=== PATIENT | male | born 1935 | race Caucasian/White ===

== ENCOUNTER 2017-06-20 09:54 | Observation (INO) | payer MEDICARE ==
[2017-06-20] MEDS ORDERED: NS 0.9% 1000 ML* 1,000 ML IV ONE (09:58)
[2017-06-20 10:21] LABS: Hematocrit 47 % (42-52); Hemoglobin 15.8 g/dl (14.0-18.0); Mean Corpuscular HGB Conc 34 g/dl (31-36); Mean Corpuscular Hemoglobin 32 pg (27-31); Mean Corpuscular Volume 95 fL (80-94); Mean Platelet Volume 9 um3 (7.4-10.4); Red Blood Count 4.94 10^6/ul (4.0-5.4); Red Cell Distribution Width 13 % (10.5-15); White Blood Count 9.1 10^3/ul (3.5-10.8)
--- NOTE | 2017-06-20 10:38 | RAD ---
INDICATION: Right jaw pain COMPARISON: None TECHNIQUE: Noncontrast axial source images were acquired from the skull base to the vertex. FINDINGS: Ventricles/sulci: There is cortical atrophy with compensatory dilatation of the CSF spaces. Brain parenchyma: There is mild periventricular and subcortical white matter change compatible with chronic ischemia. Intracranial hemorrhage:None. Extra-axial spaces: There are no abnormal extra axial fluid collections or evidence of extra-axial mass. Calvarium: There is no calvarial fracture or other calvarial abnormality. Scalp: There is no evidence of scalp or extracalvarial soft tissue abnormality. Paranasal sinuses/mastoid: There are findings of mild chronic sinusitis. Other: None. IMPRESSION: No acute intracranial findings
[2017-06-20 10:45] LABS: Troponin I 0.01 ng/mL (<0.04)
[2017-06-20 10:53] LABS: Albumin 3.6 g/dL (3.2-5.2); BUN/Creatinine Ratio 18.3 (8-20); Calcium 8.9 mg/dL (8.6-10.3); EGFR African American 67.5 (>60); EGFR Non-African American 52.5 (>60); Globulin 3.1 g/dL (2-4); HDL Cholesterol 36.3 mg/dL; Potassium 4.3 mmol/L (3.5-5.0); Total Bilirubin 0.6 mg/dL (0.2-1.0); Total Protein 6.7 g/dL (6.4-8.9)
--- NOTE | 2017-06-20 10:58 | RAD ---
INDICATION: Code smith COMPARISON: None TECHNIQUE: An AP seated portable view obtained at 1033 hours is submitted. FINDINGS: Bones/Soft Tissues: There are no acute bony findings. Cardiomediastinal: The cardiomediastinal silhouette is normal. Lungs: There are no infiltrates. Pleura: There are no pleural effusions. Other: None IMPRESSION: NO ACTIVE DISEASE.
[2017-06-20 12:57] LABS: Urine Bacteria Absent (Absent); Urine Bilirubin Negative (Negative); Urine Glucose Negative (Negative); Urine Nitrite Negative (Negative)
[2017-06-20] MEDS ORDERED: Aspirin Low Dose CHEW TAB* 81 MG PO ONE (13:19)
[2017-06-20] MEDS ORDERED: Acetaminophen TAB* 325 MG PO PRN (15:09)
[2017-06-20] MEDS ORDERED: Iodixanol* (CONTRAST) 320 MG/ML 100 ML SDV IV ONE (15:18)
--- NOTE | 2017-06-20 16:17 | RAD ---
Indication: RIGHT side jaw numbness and speech changes. Onset 8:45 AM; symptoms improving. Comparison: CT brain of the same date and May 03, 2012 MRI. Technique: [place] 1.5 Megan [id number] with GEM suite. MRI brain without contrast. Report: There is restricted diffusion flanking the RIGHT precentral sulcus of the RIGHT frontal lobe in the RIGHT MCA distribution consistent with acute or subacute ischemia. There is additional restricted diffusion at the vertex of the LEFT frontal lobe consistent with acute or subacute ischemia in the LEFT KATE or MCA distribution. Susceptibility series is negative for stigmata of hemosiderin deposition to indicate previous hemorrhage. Negative for sulcal effacement. No intra or extra-axial fluid collection evident. Small chronic lacunar infarct at the RIGHT cerebellar hemisphere. T2 hyperintensities in the periventricular and subcortical white matter of the cerebral hemispheres while not entirely specific are most suggestive of chronic small vessel ischemic disease. Preserved major intracranial flow-voids. Unremarkable orbital contents. No suspicious calvarial or skull base lesion evident. Mucous retention cyst or polyp at the RIGHT maxillary sinus. Negative for paranasal sinus fluid levels or mastoid effusions. IMPRESSION: 1. Acute or subacute ischemia at the RIGHT and LEFT frontal lobes without appreciable mass effect. 2. Stigmata of chronic small vessel ischemic disease. 3. Moderate atrophy.
--- NOTE | 2017-06-20 16:34 | RAD ---
INDICATION: RIGHT jaw region numbness beginning at 8:45 AM with improvement. Foci of acute or subacute ischemia at the RIGHT and LEFT frontal lobes on MRI. COMPARISON: MRI of the same date. May 03, 2012 carotid ultrasound. TECHNIQUE: Multidetector CT images were obtained from the aortic arch to the vertex of the head with 80 mL Visipaque 320 IV contrast. Arterial phase of enhancement. Multiplanar reformation including maximum intensity projection. 3-D arterial volume rendering. Stenosis estimations based on denominator of distal arterial diameter. NECK ANGIOGRAM REPORT: Normal configuration of the branch vessels at the aortic arch. Negative for ostial stenosis. Mild calcific and noncalcific plaque at the proximal RIGHT subclavian artery without significant stenosis resulting. Mild calcific and noncalcific plaque at the RIGHT carotid bulb and proximal internal carotid artery without stenosis based on NASCET criteria. Mild calcific plaque at the LEFT carotid bulb and proximal internal carotid artery without significant stenosis based on NASCET criteria. LEFT dominant vertebral artery with both vertebral arteries patent and contributing to the basilar artery. The LEFT vertebral artery is tortuous in the proximal segment. No evidence for carotid or vertebral artery dissection. Diffuse cervical degenerative spondylosis and facet joint osteoarthritis with multilevel foraminal stenosis resulting. No fracture or suspicious focal osseous lesion evident. NECK ANGIOGRAM IMPRESSION: Mild atherosclerotic plaque at the carotid bifurcations without significant resulting stenosis. HEAD ANGIOGRAM REPORT: Mild atherosclerotic plaque at the intracranial internal carotid arteries without hemodynamic significant stenosis resulting. Patent M1 and M2 segments of the middle cerebral arteries. Patent A1 and A2 segments of the anterior cerebral arteries. No anterior communicating artery visualized. Unremarkable basilar artery and cerebellar artery origins. Patent RIGHT posterior cerebral artery is supplied primarily by the anterior circulation with normal variant hypoplastic RIGHT P1 segment. LEFT posterior cerebral artery is patent and supplied primarily by the posterior circulation with normal variant hypoplastic LEFT posterior communicating artery. The LEFT supraclinoid internal carotid artery is prominent measuring up to 4 mm diameter compared with 3 mm on the LEFT consistent with a fusiform aneurysm which is grossly unchanged compared with an MRI from May 03, 2012. No ogden aneurysm of the central intracranial arterial vasculature evident. No intracranial aneurysm or vascular malformation evident. Patent dominant dural venous sinuses. HEAD ANGIOGRAM IMPRESSION: 1. Negative for large vessel central intracranial arterial occlusion or stenosis. 2. 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 CPT II: CPT II Codes: 3100F
[2017-06-20] MEDS: Cyanocobalamin TAB* 500 MCG PO SCH (18:42)
--- NOTE | 2017-06-20 18:45 | ED ---
Natalie Bowie SooYoung, scribed for Rony Strong MD on 06/20/17 at 0958 . Neurological HPI - HPI Summary HPI Summary: An 82 y/o M with PMHx TIA presents to ED BIBA with numbness on R side of face. Associated sx: slight facial droop, pt notes this is chronic. Pt states feeling better on arrival in ED. - History of Current Complaint Stated Complaint: RIGHT SIDED FACIAL NUMBNESS Time Seen by Provider: 06/20/17 09:58 Hx Obtained From: Patient Onset/Duration: Still Present - Allergy/Home Medications Allergies/Adverse Reactions: Allergies Allergy/AdvReac Type Severity Reaction Status Date / Time No Known Allergies Allergy Verified 06/20/17 10:03 Home Medications: Home Medications Aspirin Low Dose CHEW TAB* [Aspirin Low Dose TAB*] 81 mg PO DAILY 06/20/17 [ History Confirmed 06/20/17] Atorvastatin* [Lipitor*] 10 mg PO DAILY 06/20/17 [History Confirmed 06/20/17] Cyanocobalamin TAB* [Vitamin B12 TAB*] 1,000 mcg PO DAILY 06/20/17 [History Confirmed 06/20/17] PMH/Surg Hx/FS Hx/Imm Hx Previously Healthy: No Musculoskeletal History: Denies: Hx Rheumatoid Arthritis, Hx Osteoporosis Neurological History: Reports: Hx Transient Ischemic Attacks (TIA) - Family History Known Family History: Positive: Other - mother: VINITAA at 68 - Social History Occupation: Retired Lives: Alone Alcohol Use: None Hx Substance Use: No Smoking Status (MU): Unknown if Ever Smoked Review of Systems Negative: Fever Neurological: Other - pos: slight R facial droop, chronic Positive: Numbness - R side All Other Systems Reviewed And Are Negative: Yes Physical Exam - Summary Physical Exam Summary: VITAL SIGNS: Reviewed. GENERAL: Patient is a well-developed and nourished MALE who is lying comfortable in the stretcher. Patient is not in any acute respiratory distress. HEAD AND FACE: No signs of trauma. No ecchymosis, hematomas or skull depressions. No sinus tenderness. EYES: PERRLA, EOMI x 2, No injected conjunctiva, no nystagmus. No photophobia. EARS: Hearing grossly intact. Ear canals and tympanic membranes are within normal limits. MOUTH: Oropharynx within normal limits. NECK: Supple, trachea is midline, no adenopathy, no JVD, no carotid bruit, no c- spine tenderness, neck with full ROM. No meningeal signs, no Kernig's or Brudzinskis signs. CHEST: Symmetric, no tenderness at palpation LUNGS: Clear to auscultation bilaterally. No wheezing or crackles. CVS: Regular rate and rhythm, S1 and S2 present, no murmurs or gallops appreciated. ABDOMEN: Soft, non-tender. No signs of distention. No rebound, no guarding, and no masses palpated. Bowel sounds are normal. EXTREMITIES: FROM in all major joints, no edema, no cyanosis or clubbing. NEURO: Alert and oriented x 3. No acute neurological deficits. Speech is normal and follows commands. SKIN: Dry and warm GCS: 15 Triage Information Reviewed: Yes Vital Signs On Initial Exam: Initial Vitals Temp Pulse Resp BP Pulse Ox 98.1 F 77 18 160/92 92 06/20/17 09:56 06/20/17 09:56 06/20/17 09:56 06/20/17 09:56 06/20/17 09:56 Vital Signs Reviewed: Yes Diagnostics - Vital Signs Vital Signs Temp Pulse Resp BP Pulse Ox 06/20/17 15:00 70 16 133/83 97 06/20/17 14:30 81 17 137/81 98 06/20/17 14:24 141/118 06/20/17 14:13 119 24 96 06/20/17 14:00 58 20 94 06/20/17 13:32 65 21 95 06/20/17 12:32 90 16 139/76 93 06/20/17 11:31 95 06/20/17 10:55 98.5 F 99 16 176/99 94 06/20/17 09:58 87 16 94 06/20/17 09:56 98.1 F 77 18 160/92 92 - Laboratory Lab Results: Lab Results 06/20/17 06/20/17 06/20/17 Range/Units 10:05 10:05 10:05 WBC 9.1 (3.5-10.8) 10^3/ul RBC 4.94 (4.0-5.4) 10^6/ul Hgb 15.8 (14.0-18.0) g/dl Hct 47 (42-52) % MCV 95 H (80-94) fL MCH 32 H (27-31) pg MCHC 34 (31-36) g/dl RDW 13 (10.5-15) % Plt Count 128 L (150-450) 10^3/ul MPV 9 (7.4-10.4) um3 Neut % (Auto) 80.5 (38-83) % Lymph % (Auto) 12.3 L (25-47) % [place] % (Auto) 5.2 (1-9) % Eos % (Auto) 0.6 (0-6) % Baso % (Auto) 1.4 (0-2) % Absolute Neuts (auto) 7.3 (1.5-7.7) 10^3/ul Absolute Lymphs (auto) 1.1 (1.0-4.8) 10^3/ul Absolute Monos (auto) 0.5 (0-0.8) 10^3/ul Absolute Eos (auto) 0.1 (0-0.6) 10^3/ul Absolute Basos (auto) 0.1 (0-0.2) 10^3/ul Absolute Nucleated RBC 0 10^3/ul Nucleated RBC % 0 INR (Anticoag Therapy) 0.90 (0.89-1.11) APTT 31.7 (26.0-36.3) seconds Sodium 140 (133-145) mmol/L Potassium 4.3 (3.5-5.0) mmol/L Chloride 109 (101-111) mmol/L Carbon Dioxide 25 (22-32) mmol/L Anion Gap 6 (2-11) mmol/L BUN 24 (6-24) mg/dL Creatinine 1.31 H (0.67-1.17) mg/dL Est GFR ( Amer) 67.5 (>60) Est GFR (Non-Af Amer) 52.5 (>60) BUN/Creatinine Ratio 18.3 (8-20) Glucose 156 H (70-100) mg/dL Lactic Acid (0.5-2.0) mmol/L Calcium 8.9 (8.6-10.3) mg/dL Total Bilirubin 0.60 (0.2-1.0) mg/dL AST 15 (13-39) U/L ALT 13 (7-52) U/L Alkaline Phosphatase 57 (34-104) U/L Troponin I 0.01 (<0.04) ng/mL Total Protein 6.7 (6.4-8.9) g/dL Albumin 3.6 (3.2-5.2) g/dL Globulin 3.1 (2-4) g/dL Albumin/Globulin Ratio 1.2 (1-3) Triglycerides 77 mg/dL Cholesterol 118 mg/dL LDL Cholesterol 66 mg/dL HDL Cholesterol 36.3 mg/dL Urine Color Urine Appearance Urine pH (5-9) Ur Specific [place] (1.010-1.030) Urine Protein (Negative) Urine Ketones (Negative) Urine Blood (Negative) Urine Nitrate (Negative) Urine Bilirubin (Negative) Urine Urobilinogen (Negative) Ur Leukocyte Esterase (Negative) Urine WBC (Auto) (Absent) Urine RBC (Auto) (Absent) Urine Bacteria (Absent) Hyaline Casts (Absent) Urine Glucose (Negative) 06/20/17 06/20/17 Range/Units 10:05 11:20 WBC (3.5-10.8) 10^3/ul RBC (4.0-5.4) 10^6/ul Hgb (14.0-18.0) g/dl Hct (42-52) % MCV (80-94) fL MCH (27-31) pg MCHC (31-36) g/dl RDW (10.5-15) % Plt Count (150-450) 10^3/ul MPV (7.4-10.4) um3 Neut % (Auto) (38-83) % Lymph % (Auto) (25-47) % [place] % (Auto) (1-9) % Eos % (Auto) (0-6) % Baso % (Auto) (0-2) % Absolute Neuts (auto) (1.5-7.7) 10^3/ul Absolute Lymphs (auto) (1.0-4.8) 10^3/ul Absolute Monos (auto) (0-0.8) 10^3/ul Absolute Eos (auto) (0-0.6) 10^3/ul Absolute Basos (auto) (0-0.2) 10^3/ul Absolute Nucleated RBC 10^3/ul Nucleated RBC % INR (Anticoag Therapy) (0.89-1.11) APTT (26.0-36.3) seconds Sodium (133-145) mmol/L Potassium (3.5-5.0) mmol/L Chloride (101-111) mmol/L Carbon Dioxide (22-32) mmol/L Anion Gap (2-11) mmol/L BUN (6-24) mg/dL Creatinine (0.67-1.17) mg/dL Est GFR ( Amer) (>60) Est GFR (Non-Af Amer) (>60) BUN/Creatinine Ratio (8-20) Glucose (70-100) mg/dL Lactic Acid 2.2 H* (0.5-2.0) mmol/L Calcium (8.6-10.3) mg/dL Total Bilirubin (0.2-1.0) mg/dL AST (13-39) U/L ALT (7-52) U/L Alkaline Phosphatase (34-104) U/L Troponin I (<0.04) ng/mL Total Protein (6.4-8.9) g/dL Albumin (3.2-5.2) g/dL Globulin (2-4) g/dL Albumin/Globulin Ratio (1-3) Triglycerides mg/dL Cholesterol mg/dL LDL Cholesterol mg/dL HDL Cholesterol mg/dL Urine Color Yellow Urine Appearance Clear Urine pH 7.0 (5-9) Ur Specific [place] 1.016 (1.010-1.030) Urine Protein 2+(100 mg/dl) H (Negative) Urine Ketones Negative (Negative) Urine Blood Negative (Negative) Urine Nitrate Negative (Negative) Urine Bilirubin Negative (Negative) Urine Urobilinogen Negative (Negative) Ur Leukocyte Esterase Negative (Negative) Urine WBC (Auto) Trace(0-5/hpf) (Absent) Urine RBC (Auto) Trace(0-2/hpf) (Absent) Urine Bacteria Absent (Absent) Hyaline Casts Present H (Absent) Urine Glucose Negative (Negative) Result Diagrams: 06/20/17 10:05 06/20/17 10:05 Lab Statement: Any lab studies that have been ordered have been reviewed, and results considered in the medical decision making process. - Radiology CXR Xray Interpretation: No Acute Changes - IMPRESSION: No active dx. ED physician has reviewed this radiology report and agrees Radiology Interpretation Completed By: Radiologist - CT BRAIN CT CT Interpretation: No Acute Changes - IMPRESSION: No acute intracranial findings. ED physician has reviewed this radiology report and agrees CT Interpretation Completed By: Radiologist - EKG 1016 Cardiac Rate: NL - 93bpm EKG Rhythm: Sinus Rhythm ST Segment: Normal Ectopy: None NIH Scale - NIH Scale Level of Consciousness: Alert/Keenly Responsive Ask Patient the Month and His/Her Age: Both Correct Ask Pt to Open/Close Eyes and Leather Heel Breaster/Release Non-Paretic Hand: Both Correctly Best Gaze (Only Horizontal Eye Movement): Normal Visual Field Testing: No Visual Loss Facial Paresis-Pt to Smile & Close Eyes or Grimace Symmetry: Normal/Symmetrical Motor Function - Right Arm: No Drift-Holds 10 Seconds Motor Function - Left Arm: No Drift-Holds 10 Seconds Motor Function - Right Leg: No Drift-Holds 10 Seconds Motor Function - Left Leg: No Drift-Holds 10 Seconds Limb Ataxia-Must be out of Proportion to Weakness Present: Absent Sensory (Use Pinprick to Test Arms/Legs/Trunk/Face): Normal Best Language (Describe Picture, Name Items): No Aphasia Dysarthria (Read Several Words): Normal Extinction and Inattention: No Abnormality Total Score: 0 Re-Evaluation - Re-Evaluation 1 Re-Evaluation Time: 15:13 Change: Unchanged Comment: Discussing results and consult with family members. Course/Dx - Course Course Of Treatment: An 82 y/o M with PMHx TIA presents to ED BIBA with numbness on R side of face. Associated sx: slight facial droop, pt notes this is chronic. Pt states feeling better on arrival in ED. Bloodwork results are without any significant abnormalities except creatinine 1.31, glucose 156. Head CT is negative for acute intracranial pathology. CXR is neg. All sx are secondary to TIA. All sx are resolved. Discussed case with Dr. Wall, neuro, who recommends admission for TIA workup. Discussed case with Dr. Jaramillo, hospitalist, who accepts pt for admission. - Differential Dx Differential Diagnoses Neuro: Positive: Cerebrovascular Accident, Seizure Disorder, Transient Ischemic Attack - Diagnoses Provider Diagnoses: TIA (transient ischemic attack) - Physician Notifications Discussed Care Of Patient With: Ev Wall - neuro Time Discussed With Above Provider: 13:17 Instructed by Provider To: Admit As Observation - recommends admit for observation Discharge - Discharge Plan Condition: Stable Disposition: ADMITTED TO [facility] Consult Consult: 1345: Consult with Dr. Jaramillo, hospitalist Will admit pt. The documentation as recorded by the Natalie sanders SooYoung accurately reflects the service I personally performed and the decisions made by me, Rony Strong MD.
[2017-06-20] MEDS: Heparin VIAL(*) 5000 UNITS/ML VIAL (FIVE THOUSAND) SUBCUT SCH (20:46)
--- NOTE | 2017-06-20 20:47 | HP ---
CC: Lloyd Hawley NP; Dr. Wall * HISTORY AND PHYSICAL: DATE OF ADMISSION: 06/20/17 PRIMARY CARE PROVIDER: Lloyd Hawley NP CHIEF COMPLAINT: Problems with speech and right facial numbness. HISTORY OF PRESENT ILLNESS: Mr. Torres is an 82-year-old male with a history of CVA in 2011, which manifested as left leg numbness and resolved with no residual deficit, who presented today complaining of right-sided facial numbness. The patient stated that today in the morning when he was trying to get up from a chair, he noted that right side of his face, specifically the lower jaw area was numb. He also stated at that point he felt generalized weakness and fatigue. He also noted that his speech was different than usual. He stated that the numbness resolved within minutes, but the speech problems continued to be noticeable. In fact, when I was talking with the patient in the emergency room with the presence of both his sister and [id number], they both noted that the patient's speech is slightly slurred and different from his baseline. The patient is going to be admitted with the diagnosis of CVA to the hospital. PAST MEDICAL HISTORY: 1. History of bilateral cataracts extraction. 2. History of vitamin B12 deficiency. 3. History of hyperlipidemia. 4. History of ischemic CVA in 2012. MEDICATIONS: Include: 1. Vitamin B12, 1000 mcg daily. 2. Atorvastatin 10 mg daily. 3. Aspirin 81 mg daily. ALLERGIES: No known drug allergies. FAMILY HISTORY: Positive for mother who of CVA at the age of 77. Father with history of heart disease who suddenly in his sleep at the age of 77 also. SOCIAL HISTORY: The patient denies any tobacco or drug use. He drinks an occasional beer. 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 His surrogate decision making person is his brother, Bravo Torres. The patient is DNR. REVIEW OF SYSTEMS: Please see history of present illness. All the remaining 14 systems were reviewed with the patient and were otherwise negative. PHYSICAL EXAMINATION GENERAL: The patient is a very pleasant 82-year-old male who is in no acute distress, alert, awake, and oriented x3. VITAL SIGNS: Blood pressure 133/83, heart rate of 71 and regular, respiratory rate 16, oxygen saturation 97% on room air, temperature 98.6. HEENT: Head atraumatic and normocephalic. Eyes: Pupils are equal, round, and reactive to light and accommodation. Oropharynx clear. Mucosa moist. NECK: Supple. No JVD, no bruits bilaterally. RESPIRATORY: Clear to auscultation bilaterally CARDIOVASCULAR: Regular rate and rhythm. No murmur. ABDOMEN: Soft and nontender. Bowel sounds are present in all 4 quadrants. EXTREMITIES: There is no edema, pulses are +2 bilaterally. No clubbing or cyanosis. NEURO EVALUATION: The patient appears to have flattening of left-sided nasolabial fold, but it is very difficult to establish that during my evaluation due to abundant facial hair. He has no further numbness detected on his face. His speech is very mildly dysarthric. I have no difficulty understanding the patient during my evaluation. Otherwise, motor strength is 5/ 5 bilaterally. [id number] is slightly dysmetric on the left by approximately 1 cm. Gait is steady. There is no sensation deficit. Motor strength in lower extremities is 5/5 bilaterally. PSYCHIATRIC EVALUATION: The patient is oriented x3 with no evidence of anxiety or depression. LABORATORY DATA: Show white blood cell count of 9.1, hemoglobin of 15.8, hematocrit of 47, platelets of 128,000. Sodium is 140, potassium of 4.3, chloride 109, carbon dioxide 25, BUN 24, creatinine 1.3. The patient's creatinine at his baseline is 1.3 dating back to 2013. The patient's lactic acid was slightly elevated at 2.2. Liver function tests were unremarkable, troponin of 0.01. LDL cholesterol of 66. Urinalysis unremarkable apart from +2 protein. The patient's brain MRI, impression: "Acute or subacute ischemia in the right and left frontal lobes without appreciable . Stigmata of chronic small vessel ischemic change. Moderate atrophy." CT angiogram of the head and neck is pending at the time of dictation. The patient's EKG showed sinus rhythm with heart rate of 92 beats per minute with PAC's and left anterior hemiblock. There was no old EKG available for comparison. Portable chest x-ray, impression: "No active disease." ASSESSMENT/PLAN: Acute, what appears to be multifocal cerebrovascular accident in a patient with mild residual dysarthria. At this point, the patient is going to be continued on aspirin. I will ask Dr. Wall to see the patient in consultation. switch to Plavix at this point. For the time being, he is going to be admitted to the hospital on telemetry monitored floor. Transthoracic echocardiogram is going to be obtained with bubble study. CT angiogram of the head and neck is being obtained right now. The patient is going to be placed on neuro checks every 2 hours. His statin is going to be continued at the same dose. Bedside nursing swallow evaluation is going to be obtained as well as speech therapy consult. In regards to history of dyslipidemia, the patient's LDL is at the goal at 66 and his Lipitor is going to be continued. For history of vitamin B12 deficiency , we will continue his oral vitamin B12 supplement. For DVT prophylaxis, the patient is going to be placed on heparin subcutaneously. The patient's code status is do not resuscitate and that was updated with the patient. His surrogate is his brother Bravo. TIME SPENT: Approximately 65 minutes were spent on the admission of this patient, more than half that time was spent [id number] with the patient during the interview and physical exam. [id number]/[facility] #: [id number] [place]
[2017-06-21] MEDS: Heparin VIAL(*) 5000 UNITS/ML VIAL (FIVE THOUSAND) SUBCUT SCH ×2 (05:51→13:38)
[2017-06-21 06:59] LABS: Hematocrit 43 % (42-52); Hemoglobin 14.5 g/dl (14.0-18.0); Mean Corpuscular HGB Conc 34 g/dl (31-36); Mean Corpuscular Hemoglobin 32 pg (27-31); Mean Corpuscular Volume 94 fL (80-94); Mean Platelet Volume 9 um3 (7.4-10.4); Red Blood Count 4.58 10^6/ul (4.0-5.4); Red Cell Distribution Width 13 % (10.5-15); White Blood Count 6.4 10^3/ul (3.5-10.8)
[2017-06-21 07:15] LABS: Calcium 8.6 mg/dL (8.6-10.3); EGFR African American 69.4 (>60); EGFR Non-African American 53.9 (>60); Potassium 4.3 mmol/L (3.5-5.0)
[2017-06-21] MEDS: Cyanocobalamin TAB* 500 MCG PO SCH (08:27)
[2017-06-21] MEDS ORDERED: Aspirin Low Dose CHEW TAB* 81 MG PO SCH (09:00)
[2017-06-21] MEDS ORDERED: Atorvastatin* 10 MG TAB PO SCH ×2 (09:00→21:00)
--- NOTE | 2017-06-21 11:11 | ECHO ---
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 Left Ventricle: The left ventricular chamber size is mildly dilated. Mild concentric left ventricular hypertrophy is observed. There is a focal wall motion abnormality present. The estimated ejection fraction is 45-50%. Closer to 50% with focal relative inferior-posterior wall hypokinesis. Abnormal left ventricular diastolic filling is observed, consistent with impaired relaxation. Left Atrium: The left atrium is mildly dilated. Right Ventricle: The right ventricular chamber size and systolic function are within normal limits. Right Atrium: The right atrium is mildly dilated. The bubble study is negative. A patent foramen ovale is not demonstrated with color Doppler and agitated contrast. Aortic Valve: The aortic valve is trileaflet. There is a trace of aortic regurgitation. There is no evidence of aortic stenosis. Mitral Valve: The mitral valve leaflets are mildly thickened. There is a trace of mitral regurgitation. There is no evidence of mitral stenosis. Tricuspid Valve: The tricuspid valve leaflets are normal. There is trace tricuspid regurgitation. There is evidence of mild pulmonary hypertension. Pulmonic Valve: There is no evidence of pulmonic valve thickening. There is no evidence of pulmonic regurgitation. Pericardium: There is no significant pericardial effusion. Aorta: There is mild dilatation of the ascending aorta. The aortic arch is not well visualized. There is mild dilatation of the aortic root. Pulmonary Artery: The main pulmonary artery is not well visualized. Venous: The inferior vena cava is not visualized. Contrast: Intravenous agitated saline contrast was used to assess intracardiac shunting. Summary: There was not any prior study for comparison. Conclusions The left ventricular chamber size is mildly dilated. Mild concentric left ventricular hypertrophy is observed. The estimated ejection fraction is 45-50%. Closer to 50% with focal relative inferior-posterior wall hypokinesis. The left atrium is mildly dilated. The right atrium is mildly dilated. The bubble study is negative. A patent foramen ovale is not demonstrated with color Doppler and agitated contrast. There is a trace of aortic regurgitation. There is a trace of mitral regurgitation. There is trace tricuspid regurgitation. There is mild dilatation of the ascending aorta. Measurements Name Value Normal Range RVIDd (AP) 2D 3.1 cm (0.9 - 2.6) RVDdMajor (2D) 3 cm (2.2 - 4.4) RAd ISD 4CH 5.7 cm (3.4 - 4.9) RA (A4C)W 3.8 cm (2.9 - 4.6) IVSd (2D) 1.1 cm (0.6 - 1) LVPWd (2D) 1.1 cm (0.6 - 1) LVIDd (2D) 6.2 cm (3.6 - 5.4) LVIDs (2D) 4.6 cm - LV FS (2D) 25 % (25 - 45) Aortic Annulus 2.2 cm (1.4 - 2.6) Ao root diameter (2D) 3.7 cm (2.1 - 3.5) Ascending Ao 3.6 cm (2.1 - 3.4) LA dimension (AP) 2D 4.6 cm (2.3 - 3.8) LAd ISD 4CH 5.9 cm (2.9 - 5.3) LA ISD 4CH W 4.2 cm (2.5 - 4.5) Name Value Normal Range LA ESV SP 4CH (A/L) 57.73 ml - LA ESV SP 2CH (A/L) 65.54 ml - LA ESV BP (A/L) 62.41 ml - LA ESV BP (A/L) index 31.5 ml/m2 - LA ESV SP 4CH (MOD) 54.95 ml - LA ESV SP 2CH (MOD) 56.77 ml - Name Value Normal Range MV E-wave Vmax 0.4 m/sec - MV deceleration time 392 msec - MV A-wave Vmax 0.7 m/sec - MV E:A ratio 0.6 ratio - P. vein S-wave Vmax 0.6 m/sec - P. vein D-wave Vmax 0.4 m/sec - P. vein S:D Vmax ratio 1.8 ratio - P. vein A-wave duration 104 msec - LV septal e' Vmax 0.06 m/sec - LV lateral e' Vmax 0.03 m/sec - LV E:e' septal ratio 7 ratio - LV E:e' lateral ratio 13 ratio - Name Value Normal Range AV Vmax 1.4 m/sec - AV VTI 32.6 cm - AV peak gradient 8 mmHg - AV mean gradient 4.5 mmHg - LVOT Vmax 0.8 m/sec - LVOT VTI 19 cm - LVOT peak gradient 2.5 mmHg - LVOT mean gradient 1.3 mmHg - MASON Vmax 0.6 m/sec - Name Value Normal Range TR Vmax 2.7 m/sec - TR peak gradient 29 mmHg - RAP 8 mmHg - RVSP 37 mmHg - Name Value Normal Range PV Vmax 0.6 m/sec - PV peak gradient 1.4 mmHg -
[2017-06-21 15:52] VITALS: BP 128/72
--- NOTE | 2017-06-21 17:50 | CONS ---
NEUROLOGY CONSULTATION: DATE OF CONSULT: 06/21/17 LOCATION: The patient is an inpatient. ORDERING PHYSICIAN: Dr. Li Jaramillo. REASON FOR CONSULT: Stroke. HISTORY OF PRESENT ILLNESS: Mikael Torres is an 82-year-old man with a history of stroke in 2011 resulting in left leg weakness/numbness, who presented to the emergency department yesterday. The emergency room note and Dr. Jaramillo's note indicate that he was complaining of right-sided facial numbness , but today he tells me that he was having difficulty eating his breakfast and when he went to drink a coffee, it was coming out of his mouth and he felt generally weak, so he was worried that he had had a stroke and he called his brother who then called the ambulance for him. He is today denying to me that he had any numbness in his face on either side. In any case, his speech was also apparently different than his typical. Yesterday, when Dr. Jaramillo was evaluating the patient in the presence of his sister and [id number], they both indicated to her that his speech was slurred and different from his baseline, but it appears that it may have returned to his baseline today, though his baseline consists of indistinct speech. Today, the patient reports that his chewing and drinking abilities have improved significantly. 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 He denies any weakness of his extremities today, swallowing difficulties, or vision changes. He takes a baby aspirin daily and also a low dose of atorvastatin. PAST MEDICAL HISTORY: 1. B12 deficiency. 2. Hyperlipidemia. 3. Ischemic stroke in 2011. 4. Bilateral cataract removal. HOME MEDICATIONS: 1. Aspirin 81 mg daily. 2. Atorvastatin 10 mg daily. 3. Vitamin B12 1000 mcg daily. ALLERGIES: No known drug allergies. FAMILY HISTORY: Mother of a stroke at the age of 77. He indicates that his father passed from hardening of the arteries. SOCIAL HISTORY: He denies any tobacco or drug use. He drinks beer rarely. 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 He is not , has no children. REVIEW OF SYSTEMS: He denies any recent fever or chills, appetite changes, weight loss, joint pain or erythema or new skin rashes. He is noted to have a cough on exam today, but indicates that that is a nervous cough. He denies any chest pains or palpitations, heart fluttering. He has no GI symptoms. Otherwise, as per the HPI. PHYSICAL EXAM: Vital Signs: Temperature 97.5, blood pressure 132/79, heart rate is 61, and oxygen saturation 97% on room air. He was noted to be hypertensive at 176/99 in the ER yesterday at 10:55. Telemetry has shown sinus bradycardia with some PVCs and otherwise has been unremarkable. On general examination, he is a pleasant man, in no acute distress. He has a large scruffy alatorre. He appears somewhat younger than his stated age. His heart is in a regular rate and rhythm with no murmurs, rubs, or gallops. Lungs are clear to auscultation bilaterally. There are no carotid bruits. His skin exam is notable for tanning of his arms and no rashes. He has high arches and hammertoes. He has varicose veins in his calves. On neurologic exam, he is fully awake, alert, and oriented. His speech is somewhat difficult to understand and indistinct, but this is apparently his baseline. He has no apparent aphasia. On cranial nerve exam, his pupils are equal, round, and reactive from 2 to 1.5 mm bilaterally. He has somewhat limited upgaze in testing his eye movements, but otherwise full with no nystagmus or diplopia. Gallegos are full to confrontation. Facial sensation is symmetric to light touch and temperature. He has slight flattening of his left nasolabial fold and slight weakness and eye closure on the left, but good activation with smile. He does have difficulty smiling on command or even bearing his teeth. This does not seem to be a primary neurologic problem, however. His hearing is diminished to finger rub, but he is able to hear loud voice. The palate elevates symmetrically and the tongue is midline. On motor examination, he has normal bulk and tone in the upper and lower extremities. Strength is full proximally and distally with no pronator drift. Sensation is intact to light touch and temperature in the upper and lower extremities. [id number] is intact without ataxia. Reflexes are 2+ in the upper and lower extremities with the exception of absent ankle jerks. Toes are down. His gait is slightly wide based. Romberg is negative. DIAGNOSTIC STUDIES/LAB DATA: CBC was notable for low platelet count of 123, otherwise relatively unremarkable, aside from elevated MCH of 32. Coagulation studies were normal. BMP is notable for a creatinine of 1.28. His lactate was 2.2 yesterday. Cholesterol studies which were done yesterday and were nonfasting showed triglycerides of 77, total cholesterol 118, LDL 66, and HDL 36.3. His urinalysis is negative. A brain CT was obtained and personally reviewed and showed evidence of small vessel ischemic changes bilaterally in the periventricular white matter. CT angio of the head and neck was obtained and personally reviewed and does not show any significant stenosis or atherosclerosis in the carotid arteries or vertebral arteries. 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 Intracranially, there is no branch occlusion noted. Brain MRI was obtained and personally reviewed. This is further reviewed with Dr. Bledsoe. There is evidence of diffusion restriction in the right MCA territory only. The report indicates that there is evidence of acute to subacute stroke in both the right and left hemispheres, but I was not able see any ischemia in the left hemisphere and Dr. Bledsoe concurred that there was no acute or subacute ischemia noted in the left hemisphere. There is evidence of chronic small vessel ischemic disease, which is worse on the right. A transthoracic echocardiogram showed an ejection fraction which is close to 50% , but there is focal hypokinesis of the inferior posterior wall. The left atrium is mildly dilated as is the right atrium. There is no PFO noted. ASSESSMENT AND PLAN: Mikael Torres is an 82-year-old man with a history of ischemic stroke in 2012, who presents with a new right middle cerebral artery territory ischemic stroke. Overall, his exam is looking very good and he has only evidences of mild flattening of his left nasolabial fold. Given the appearance of his stroke, this appears most likely to be either artery to artery embolism or possibly cardioembolic in nature, but the exact etiology is unclear at this time. I would suggest changing the antiplatelet agent to Plavix 75 mg daily and stopping aspirin. I would consider having the patient evaluated for placement of a loop recorder as an outpatient for detection of paroxysmal atrial fibrillation. In addition, I looked into literature briefly on whether this fusiform aneurysm noted on the right side could contribute to his stroke and if so, if that would be an indication for anticoagulation versus antiplatelet therapy. I was not able to find anything obvious in the literature , but will discuss with stroke colleagues whether there would be any indication for changing his therapy in this setting of him having had apparently 2 strokes in the same vascular distribution. Otherwise, it sounds like the therapy evaluations have cleared him to go home and neurologically, he appears stable for discharge as well. He can follow up in my clinic in about 8 weeks. [id number] #: [id number] [place]
--- NOTE | 2017-06-22 00:23 | DS ---
CC: Lloyd Hawley NP; Dr. Wall; Dr. Horan; Dr. Chahal * DISCHARGE SUMMARY: DATE OF ADMISSION: 06/20/17 DATE OF DISCHARGE: 06/21/17 PRIMARY CARE PROVIDER: Lloyd Hawley NP. DISCHARGE DIAGNOSES: Ischemic cerebrovascular accident, right hemispheric with residual very mild dysarthria and mild flattening of left nasolabial fold. SECONDARY DIAGNOSES: 1. History of ischemic cerebrovascular accident in 2012. 2. Dyslipidemia. 3. History of cataract surgery bilaterally. 4. 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 5. Vitamin B12 deficiency. 6. Chronic kidney disease with creatinine baseline of 1.3. MEDICATIONS AT DISCHARGE: Include: 1. Lipitor 10 mg daily, unchanged. 2. Plavix 75 mg daily, which is new medication. 3. Vitamin B12 1000 mcg daily. The patient's aspirin was discontinued. LABORATORY DATA AND STUDIES PERFORMED DURING THE HOSPITAL STAY: Included: On 06/21/17, sodium of 139, potassium 4.3, chloride 109, carbon dioxide 26, BUN 23 , creatinine 1.28. The patient's lactic acid at admission was 2.2. The patient 's hemoglobin A1c was 5.8. The patient's lipid profile showed cholesterol total of 118, triglycerides of 77, LDL of 66, and HDL of 36. Brain MRI obtained on 06/20/17, impression: "Acute or subacute ischemia in the right frontal lobe without appreciable mass effect. Stigmata of chronic small vessel ischemic changes. Moderate atrophy." Please note that the original dictation said that the patient had actually ischemia in both right and left lobe, but it was corrected by Dr. Wall that the ischemia was only noted on the right frontal lobe. The patient's head and neck CTA, impression: "Negative for large vessel central intracranial arterial occlusion or stenosis. Fusiform aneurysm of the right supraclinoid internal carotid artery without gross change compared with the MRI of 2012." Neck angiogram, impression: "Mild atherosclerotic plaque at the carotid bifurcations without significant resulting stenosis." Transthoracic echocardiogram obtained on 06/21/17 showed EF of 45% or 50% with mild concentric LVH with relative inferior-posterior wall hypokinesis and bubble study negative. Patent foramen ovale was not demonstrated by carotid Doppler. The ventricular chamber size is mildly dilated. Initial brain CT at admission was unremarkable. The patient's portable chest x-ray at admission, impression: "No active disease." HOSPITALIZATION COURSE: Mikael Torres is an 82-year-old male who had history of ischemic CVA in 2012 with no residual, who presented to the hospital complaining of numbness in one side of the face and originally the patient thought that may be it was right side, but then he corrected himself may be it was left. He also had mild dysarthria. He was placed on observation and observed in the telemetry monitored bed. He had frequent PACs, but no other arrhythmia noted. His further workup included unremarkable hemoglobin A1c and fasting lipid profile with an LDL of 66. His MRI of the brain showed acute right frontal lobe ischemia. Dr. Wall saw the patient in consultation. There was a question may be the patient had an ischemic event on the left also, but Dr. Wall confirmed that with radiology department that the original study was misread. Nevertheless due to that in the single area of involvement of the ischemic CVA, the cardioembolic source of the patient's stroke is at that point less likely. Further transthoracic echocardiogram showed negative bubble study and slight cardiomyopathy with EF of 45% to 50%. CT angiogram of the neck showed fusiform aneurysm of the right carotid as mentioned above, which is unchanged from 2012. Dr. Wall recommended to switch the patient from aspirin to Plavix and continue remaining medications. The patient is to see Dr. Wall for repeat evaluation in approximately 8 weeks. We are also asking the primary care provider to refer the patient to Cardiology office for possibility of consideration of long-term loop monitoring for this patient to rule out arrhythmia. The patient was given a phone number to Dr. Horan's office, but likely he will need referral from his primary care provider to schedule an appointment. By the time of discharge, the patient has a very mild dysarthria and still has mild flattening of his left nasolabial fold, but otherwise his exam is unremarkable and unchanged from admission. Please note that this is a short summary of the patient's hospital stay. Please refer to further medical records for details. [id number] #: [id number] [facility]
== END 2017-06-21 16:45 | disposition home or self-care (01) ==
LOC: ED 09:54 → MEDTELE 15:09 → INTOOBSV 15:50 → OBSVTOIN 15:50
PROVIDERS: ADMIT Internal Medicine; ATTEND Internal Medicine
DX: I63.8 Other cerebral infarction (principal); E78.5 Hyperlipidemia, unspecified; E53.8 Deficiency of other specified B group vitamins; Z79.82 Long term (current) use of aspirin; I69.922 Dysarthria following unspecified cerebrovascular disease
CPT/HCPCS: 36415; 70450; 70496; 70498; 70551; 71010; 80048; 80053; 80061; 81003; 81015; 83036; 83605; 84484; 85025; 85610; 85730; 93005; 93306; 96360; 99284; A9270-GY; G0378; G8999-GN-CI; G9186-GN-CH; J1644; Q9967

== ENCOUNTER 2020-01-16 17:28 | Inpatient (IN) ==
[2020-01-16 18:19] LABS: ABS Lymphocytes 0.3 10^3/ul (1.0-4.8); ABS Monocytes 0.5 10^3/ul (0-0.8); Eosinophil % 0.3 %; Hematocrit 41 % (42-52); Hemoglobin 14.2 g/dL (14.0-18.0); Mean Corpuscular HGB Conc 34 g/dL (31-36); Mean Corpuscular Hemoglobin 31 pg (27-31); Mean Corpuscular Volume 92 fL (80-94); Mean Platelet Volume 9.3 fL (7.4-10.4); Nucleated Red Blood Cells % 0.2; Platelet Count 133 10^3/uL (150-450); Red Blood Count 4.51 10^6 /uL (4.18-5.48); Red Cell Distribution Width 14 % (10-15); White Blood Count 3.3 10^3/uL (3.5-10.8)
[2020-01-16 18:37] LABS: ALT 14 U/L (7-52); AST 18 U/L (13-39); Albumin 3.3 g/dL (3.2-5.2); Albumin/Globulin Ratio 0.9 (1-3); Alkaline Phosphatase 70 U/L (34-104); Anion Gap 9 mmol/L (2-11); BUN/Creatinine Ratio 19.9 (8-20); Blood Urea Nitrogen 37 mg/dL (6-24); C Reactive Protein 19.42 mg/L (<8.01); CO2 Carbon Dioxide 21 mmol/L (22-32); Calcium 9.3 mg/dL (8.6-10.3); Chloride 105 mmol/L (101-111); EGFR African American 42.2 (>60); EGFR Non-African American 34.9 (>60); Globulin 3.5 g/dL (2-4); Glucose 133 mg/dL (70-100); Potassium 4.3 mmol/L (3.5-5.0); Sodium 135 mmol/L (135-145); Total Protein 6.8 g/dL (6.4-8.9)
[2020-01-16] MEDS ORDERED: Furosemide 40 mg/4 ml IV VIAL IV ONE (18:55)
[2020-01-16 19:12] LABS: Troponin I 0.03 ng/mL (<0.03)
[2020-01-16 20:49] LABS: Urine Appearance Cloudy; Urine Bilirubin Negative (Negative); Urine Blood Negative (Negative); Urine Color Yellow; Urine Glucose Negative (Negative); Urine Ketones Negative (Negative); Urine Nitrite Negative (Negative); Urine Protein Negative (Negative); Urine Specific Gravity 1.006 (1.010-1.030); Urine Urobilinogen Negative (Negative)
[2020-01-16 22:46] LABS: Urine Appearance Cloudy; Urine Bilirubin Negative (Negative); Urine Blood 2+ (Negative); Urine Color Straw; Urine Glucose Negative (Negative); Urine Ketones Negative (Negative); Urine Nitrite Negative (Negative); Urine Protein Negative (Negative); Urine Specific Gravity 1.004 (1.010-1.030); Urine Urobilinogen Negative (Negative)
[2020-01-16 22:49] LABS: Urine Bacteria Absent (Absent); Urine Red Blood Cell 1+(3-5/hpf) (Absent); Urine Squamous Epithelial Cell Present (Absent); Urine White Blood Cell Trace(0-5/hpf) (Absent)
[2020-01-16] MEDS: Enoxaparin 30 MG/0.3 ML SYR(*) SUBCUT SCH (23:15)
[2020-01-17 00:19] LABS: Troponin I 0.04 ng/mL (<0.03)
[2020-01-17] MEDS ORDERED: Furosemide 40 mg/4 ml IV VIAL IV ONE (03:52)
[2020-01-17 05:59] LABS: ABS Lymphocytes 0.3 10^3/ul (1.0-4.8); ABS Monocytes 0.6 10^3/ul (0-0.8); Eosinophil % 0.4 %; Hematocrit 40 % (42-52); Hemoglobin 13.6 g/dL (14.0-18.0); Lymphocyte % 7.8 %; Mean Corpuscular HGB Conc 34 g/dL (31-36); Mean Corpuscular Hemoglobin 31 pg (27-31); Mean Corpuscular Volume 91 fL (80-94); Mean Platelet Volume 9.1 fL (7.4-10.4); Nucleated Red Blood Cells % 0.2; Platelet Count 131 10^3/uL (150-450); Red Blood Count 4.37 10^6 /uL (4.18-5.48); Red Cell Distribution Width 14 % (10-15); White Blood Count 3.8 10^3/uL (3.5-10.8)
[2020-01-17 06:18] LABS: ALT 13 U/L (7-52); AST 17 U/L (13-39); Albumin/Globulin Ratio 0.9 (1-3); Alkaline Phosphatase 62 U/L (34-104); Anion Gap 9 mmol/L (2-11); BUN/Creatinine Ratio 19.6 (8-20); Blood Urea Nitrogen 38 mg/dL (6-24); CO2 Carbon Dioxide 21 mmol/L (22-32); Chloride 106 mmol/L (101-111); Cholesterol 80 mg/dL; EGFR African American 40.2 (>60); EGFR Non-African American 33.2 (>60); Globulin 3.2 g/dL (2-4); Glucose 106 mg/dL (70-100); HDL Cholesterol 21.8 mg/dL; LDL Cholesterol 45 mg/dL; Potassium 3.9 mmol/L (3.5-5.0); Sodium 136 mmol/L (135-145); Total Protein 6.2 g/dL (6.4-8.9); Triglycerides 67 mg/dL
[2020-01-17 06:29] LABS: Troponin I 0.04 ng/mL (<0.03)
[2020-01-17] MEDS ORDERED: Furosemide 40 mg/4 ml IV VIAL IV SLOW PU SCH ×2 (09:00)
[2020-01-17] MEDS: Aspirin EC 81 mg TAB.EC (enteric coated) PO SCH (09:48)
[2020-01-17 15:47] LABS: BUN/Creatinine Ratio 21.3 (8-20); Calcium 9.2 mg/dL (8.6-10.3); EGFR African American 38.4 (>60); EGFR Non-African American 31.7 (>60); Magnesium 2.2 mg/dL (1.9-2.7); Potassium 3.8 mmol/L (3.5-5.0)
[2020-01-17] MEDS: Enoxaparin 30 MG/0.3 ML SYR(*) SUBCUT SCH (21:16)
[2020-01-18 04:57] LABS: ABS Lymphocytes 0.3 10^3/ul (1.0-4.8); ABS Monocytes 0.6 10^3/ul (0-0.8); Eosinophil % 0.8 %; Hematocrit 38 % (42-52); Hemoglobin 12.9 g/dL (14.0-18.0); Lymphocyte % 10.1 %; Mean Corpuscular HGB Conc 34 g/dL (31-36); Mean Corpuscular Hemoglobin 31 pg (27-31); Mean Corpuscular Volume 92 fL (80-94); Mean Platelet Volume 9.8 fL (7.4-10.4); Nucleated Red Blood Cells % 0.2; Platelet Count 114 10^3/uL (150-450); Red Blood Count 4.11 10^6 /uL (4.18-5.48); Red Cell Distribution Width 14 % (10-15); White Blood Count 3.4 10^3/uL (3.5-10.8)
[2020-01-18 05:09] LABS: BUN/Creatinine Ratio 21.1 (8-20); Calcium 8.8 mg/dL (8.6-10.3); EGFR African American 36.9 (>60); EGFR Non-African American 30.5 (>60); Potassium 3.6 mmol/L (3.5-5.0)
[2020-01-18] MEDS ORDERED: Furosemide 40 mg/4 ml IV VIAL IV SLOW PU SCH (09:00)
[2020-01-18] MEDS: Aspirin EC 81 mg TAB.EC (enteric coated) PO SCH (09:23)
[2020-01-18] MEDS ORDERED: Potassium Chlor 10 meq TAB PO ONE (12:21)
[2020-01-18] MEDS ORDERED: Bumetanide IV 0.25 MG/ML 4 ml VIAL (1 mg) SLOW PUSH ONE (12:23)
[2020-01-18] MEDS ORDERED: Potassium Chlor 20 meq TAB.ER PO ONE (14:26)
[2020-01-19] MEDS: Aspirin EC 81 mg TAB.EC (enteric coated) PO SCH (07:32)
[2020-01-19 17:23] LABS: Albumin/Globulin Ratio 0.9 (1-3); BUN/Creatinine Ratio 27.8 (8-20); Calcium 8.7 mg/dL (8.6-10.3); EGFR African American 37.7 (>60); EGFR Non-African American 31.2 (>60); Globulin 3.2 g/dL (2-4); Magnesium 2.1 mg/dL (1.9-2.7); Potassium 4.2 mmol/L (3.5-5.0); Total Protein 6.2 g/dL (6.4-8.9)
[2020-01-20 07:58] LABS: Albumin 2.9 g/dL (3.2-5.2); Albumin/Globulin Ratio 0.9 (1-3); BUN/Creatinine Ratio 29.3 (8-20); Calcium 8.8 mg/dL (8.6-10.3); EGFR African American 41.7 (>60); EGFR Non-African American 34.4 (>60); Globulin 3.2 g/dL (2-4); Magnesium 2.1 mg/dL (1.9-2.7); Potassium 4.3 mmol/L (3.5-5.0); Total Bilirubin 1.1 mg/dL (0.2-1.0); Total Protein 6.1 g/dL (6.4-8.9)
[2020-01-20] MEDS: Aspirin EC 81 mg TAB.EC (enteric coated) PO SCH (08:19)
[2020-01-20] MEDS ORDERED: Regadenoson 0.4 MG/5 ML SYRINGE ONE (14:47)
[2020-01-21 06:25] LABS: BUN/Creatinine Ratio 30.2 (8-20); Calcium 8.7 mg/dL (8.6-10.3); EGFR African American 40.7 (>60); EGFR Non-African American 33.6 (>60); Potassium 4.3 mmol/L (3.5-5.0)
[2020-01-21] MEDS ORDERED: fentaNYL 100 mcg/2 ml 50 MCG/ML VIAL ONE (08:15)
[2020-01-21] MEDS ORDERED: Midazolam 5 mg/5 ml VIAL 1 mg/ml 5 ml VIAL (5 mg) ONE (08:15)
[2020-01-21] MEDS ORDERED: Naloxone 0.4 mg VIAL 0.4 mg/ml 1 ml VIAL ONE (08:15)
[2020-01-21] MEDS ORDERED: Flumazenil 0.5 mg/5 ml 0.1 MG/ML 5 ml VIAL ONE (08:16)
[2020-01-21] MEDS: Aspirin EC 81 mg TAB.EC (enteric coated) PO SCH (11:01)
[2020-01-22 06:57] LABS: BUN/Creatinine Ratio 31.6 (8-20); Calcium 8.8 mg/dL (8.6-10.3); EGFR African American 40.4 (>60); EGFR Non-African American 33.4 (>60); Hematocrit 38 % (42-52); Hemoglobin 12.9 g/dL (14.0-18.0); Mean Corpuscular HGB Conc 34 g/dL (31-36); Mean Corpuscular Hemoglobin 31 pg (27-31); Mean Corpuscular Volume 91 fL (80-94); Potassium 4.4 mmol/L (3.5-5.0); Red Blood Count 4.19 10^6 /uL (4.18-5.48); Red Cell Distribution Width 14 % (10-15); White Blood Count 3.2 10^3/uL (3.5-10.8)
[2020-01-22 06:58] LABS: ABS Lymphocytes 0.3 10^3/ul (1.0-4.8); ABS Monocytes 0.7 10^3/ul (0-0.8); Eosinophil % 1.4 %; Lymphocyte % 10.7 %
[2020-01-22 07:56] LABS: Mean Platelet Volume 10.1 fL (7.4-10.4); Platelet Count 99 10^3/uL (150-450)
[2020-01-22 15:59] LABS: TSH (Thyroid Stimulating Horm) 3.62 mcIU/mL (0.34-5.60)
[2020-01-23 05:47] LABS: ABS Lymphocytes 0.3 10^3/ul (1.0-4.8); ABS Monocytes 0.5 10^3/ul (0-0.8); Eosinophil % 0.8 %; Hematocrit 37 % (42-52); Hemoglobin 12.3 g/dL (14.0-18.0); Lymphocyte % 10.7 %; Mean Corpuscular HGB Conc 34 g/dL (31-36); Mean Corpuscular Hemoglobin 31 pg (27-31); Mean Corpuscular Volume 92 fL (80-94); Mean Platelet Volume 10.3 fL (7.4-10.4); Nucleated Red Blood Cells % 0.3; Platelet Count 93 10^3/uL (150-450); Red Blood Count 3.98 10^6 /uL (4.18-5.48); Red Cell Distribution Width 14 % (10-15); White Blood Count 2.7 10^3/uL (3.5-10.8)
[2020-01-23 05:57] LABS: BUN/Creatinine Ratio 32.6 (8-20); Calcium 8.6 mg/dL (8.6-10.3); EGFR African American 45.3 (>60); EGFR Non-African American 37.4 (>60); Potassium 4.4 mmol/L (3.5-5.0)
[2020-01-24 06:10] LABS: ABS Lymphocytes 0.3 10^3/ul (1.0-4.8); ABS Monocytes 0.5 10^3/ul (0-0.8); Corrected Retic Count 0.8 % (0.5-1.5); Eosinophil % 1.2 %; Hematocrit 38 % (42-52); Hematocrit for Retic CNT 38 % (42-52); Hemoglobin 12.9 g/dL (14.0-18.0); Immature Retic Fraction 0.34; Lymphocyte % 10.5 %; Mean Corpuscular HGB Conc 34 g/dL (31-36); Mean Corpuscular Hemoglobin 31 pg (27-31); Mean Corpuscular Volume 92 fL (80-94); Mean Platelet Volume 10.1 fL (7.4-10.4); Nucleated Red Blood Cells % 0.1; Platelet Count 103 10^3/uL (150-450); RBC Retic Count 4.17 10^6/uL (4.18-5.48); Red Blood Count 4.17 10^6 /uL (4.18-5.48); Red Cell Distribution Width 14 % (10-15)
[2020-01-24 06:18] LABS: Activated Partial Thrombo Time 35.7 seconds (26.0-38.0); INR 1.71 (0.82-1.09)
[2020-01-24 06:23] LABS: ALT 12 U/L (7-52); AST 13 U/L (13-39); Albumin 2.8 g/dL (3.2-5.2); Albumin/Globulin Ratio 0.9 (1-3); Alkaline Phosphatase 60 U/L (34-104); Anion Gap 7 mmol/L (2-11); BUN/Creatinine Ratio 31.2 (8-20); Blood Urea Nitrogen 59 mg/dL (6-24); CO2 Carbon Dioxide 21 mmol/L (22-32); Calcium 8.7 mg/dL (8.6-10.3); Chloride 103 mmol/L (101-111); EGFR African American 41.4 (>60); EGFR Non-African American 34.2 (>60); Globulin 3.2 g/dL (2-4); Glucose 108 mg/dL (70-100); Potassium 4.6 mmol/L (3.5-5.0); Sodium 131 mmol/L (135-145)
[2020-01-24 06:38] LABS: % Iron Saturation 21 % (15-55); Iron 54 ug/dL (50-212); LDH 289 U/L (140-271); Rheumatoid Factor 28 IU/mL (<15); Total Iron Binding Capacity 252 mcg/dL (250-450); Transferrin 180 mg/dL (203-362)
[2020-01-24 06:59] LABS: Ferritin 186.1 ng/mL (24-336)
[2020-01-24 15:52] VITALS: BP 100/74
[2020-01-28 14:40] LABS: Albumin 29 %; Gamma Globulin 27 %; Total Protein(PEP) Urine 17 mg/dL
== END 2020-01-24 16:02 | disposition home or self-care (01) | DRG 292 ==
LOC: ED 17:28 → MEDTELE 21:49
PROVIDERS: ADMIT Internal Medicine; ATTEND Internal Medicine